=== PATIENT | male | born 1975 ===

== ENCOUNTER 2019-06-15 02:19 | Emergency (ER) | payer SELFPAY ==
[2019-06-15] MEDS ORDERED: ASPIRIN 325 MG TAB PO ONE (02:52)
[2019-06-15] MEDS ORDERED: NITROGLYCERIN 0.4 MG TAB SUBL SL PRN (02:53)
[2019-06-15] MEDS ORDERED: MORPHINE 4 MG/1 ML INJ IV ONE ×2 (02:53→04:09)
[2019-06-15] MEDS ORDERED: ONDANSETRON 4 MG/2 ML INJ IV ONE (02:53)
--- NOTE | 2019-06-15 02:58 | Emergency Department Report ---
ED Abdominal Pain HPI - General Chief Complaint: Chest Pain Stated Complaint: GRISELDA Time Seen by Provider: 06/15/19 02:51 Source: patient Mode of arrival: Ambulatory Limitations: No Limitations - History of Present Illness Initial Comments: Mr. Baxter is a very pleasant 44 yo male without significant past medical hx who presents with gradual onset of epigastric pain radiating to the back and right chest. He has severe shortness of breath. Sharp pain. Pain is 8 out of 10 in severity. No previous history of hypertension. Has not seen a physician in 5-6 years. He drank 2 beers today. He did have a full Thanksgiving and her today. Pain is worse with breathing. Pain has been constant for the past 2 hours. He drinks beer on a weekly basis. MD Complaint: abdominal pain -: Gradual, hour(s) (2) Location: epigastric Radiation: back, chest Severity: severe Severity scale (0 -10): 8 Quality: aching, sharp Consistency: constant Improves With: nothing Worsens With: other (inspiration) Associated Symptoms: other (shortness of breath) - Related Data Previous Rx's Medication Instructions Recorded Last Taken Type HYDROcodone/APAP 5-325 [[place] 1 each PO Q6HR PRN #10 tablet 06/15/19 Unknown Rx 5/325] amLODIPine 5 mg PO DAILY 30 Days #30 tab 06/15/19 Unknown Rx levoFLOXacin [Levaquin] 750 mg PO QDAY 4 Days #4 tablet 06/15/19 Unknown Rx Allergies Allergy/AdvReac Type Severity Reaction Status Date / Time No Known Allergies Allergy Unverified 06/15/19 02:35 ED Review of Systems ROS: Stated complaint: GRISELDA Other details as noted in HPI Comment: All other systems reviewed and negative Constitutional: denies: fever, malaise Respiratory: shortness of breath. denies: cough Cardiovascular: chest pain Gastrointestinal: abdominal pain ED Past Medical Hx - Past Medical History Previous Medical History?: No - Surgical History Past Surgical History?: No - Family History Family history: hypertension - Social History Smoking Status: Current Every Day Smoker Substance Use Type: Alcohol - Medications Home Medications: Home Medications Medication Instructions Recorded Confirmed Last Taken Type HYDROcodone/APAP 5-325 [[place] 1 each PO Q6HR PRN #10 tablet 06/15/19 Unknown Rx 5/325] amLODIPine 5 mg PO DAILY 30 Days #30 tab 06/15/19 Unknown Rx levoFLOXacin [Levaquin] 750 mg PO QDAY 4 Days #4 tablet 06/15/19 Unknown Rx ED Physical Exam - General Limitations: No Limitations General appearance: alert, other (appears uncomfortable, speaking full s entences) - Head Head exam: Present: atraumatic, normocephalic - Eye Eye exam: Present: normal appearance - ENT ENT exam: Present: mucous membranes moist - Neck Neck exam: Present: normal inspection, full ROM - Respiratory Respiratory exam: Present: normal lung sounds bilaterally. Absent: respiratory distress, wheezes, rales, rhonchi - Cardiovascular Cardiovascular Exam: Present: regular rate, normal rhythm, normal heart sounds. Absent: systolic murmur, diastolic murmur, rubs, gallop - GI/Abdominal GI/Abdominal exam: Present: soft, normal bowel sounds. Absent: distended, tenderness, guarding, rebound - Rectal Rectal exam: Present: deferred - Extremities Exam Extremities exam: Present: normal inspection - Back Exam Back exam: Present: normal inspection - Neurological Exam Neurological exam: Present: alert, oriented X3, normal gait - Psychiatric Psychiatric exam: Present: normal affect, normal mood - Skin Skin exam: Present: warm, dry, intact, normal color. Absent: rash ED Course Vital Signs 06/15/19 06/15/19 06/15/19 02:35 02:42 04:05 Temperature 98.8 F Pulse Rate 89 88 77 Respiratory 22 17 15 Rate Blood Pressure 225/123 Blood Pressure 216/121 [Left] O2 Sat by Pulse 98 97 90 Oximetry 06/15/19 06/15/19 04:16 04:30 Temperature Pulse Rate 79 83 Respiratory 31 H 20 Rate Blood Pressure 159/99 164/99 Blood Pressure [Left] O2 Sat by Pulse 96 95 Oximetry ED Medical Decision Making - Lab Data Result diagrams: 06/15/19 02:58 06/15/19 02:58 - EKG Data 06/15/19 02:58 EKG obtained at 0228 Normal sinus rhythm rate 90 beats a minute normal axis normal intervals positive LVH no ST elevation no ischemic changes - Radiology Data Radiology results: report reviewed CTA: negative for VTE, RLL groundglass densities CT A/P: no cT evidence of acute inflammatory or obstructive process in abdomen or pelvis, +cholelithiasis, adrenal nodule - Medical Decision Making Mr. Godoy presents with epigastric Right chest pain worse with inspiration. Upon further questioning, he has had cough for 2 weeks. With elevated WBC, hx of cough, CT findings dx: RLL PNA CAP, given information on biliary colic, info rmed of adrenal gland nodule, given copy of CT results Pain is not typical for ACS. Pleuritic, right sided prominent at rest, troponin x 2 negative to rule out DC rx: levaquin, amlodipine, norco repeat bp 155/92 Critical care attestation.: If time is entered above; I have spent that time in minutes in the direct care of this critically ill patient, excluding procedure time. ED Disposition Clinical Impression: CAP (community acquired pneumonia), Hypertensive urgency, Gallstones, Mass of adrenal gland Disposition: - TO HOME OR SELFCARE Is pt being admited?: No Does the pt Need Aspirin: No Condition: Stable Instructions: Bacterial Pneumonia (ED), Hypertension (ED), Biliary Colic (ED) Additional Instructions: Tienes un lugar en tu glndula suprarrenal. Guarde terrence copia de cortes tomografa computarizada. Lleve los resultados de la tomografa computarizada a cortes nuevo mdico. Prescriptions: amLODIPine 5 mg PO DAILY 30 Days #30 tab levoFLOXacin [Levaquin] 750 mg PO QDAY 4 Days #4 tablet HYDROcodone/APAP 5-325 [[place] 5/325] 1 each PO Q6HR PRN #10 tablet PRN Reason: Pain Referrals: JESS GIBSON MD [Staff Physician] - 3-5 Days Forms: Work/School Release Form(ED) Print Language: HONG KONGER
--- NOTE | 2019-06-15 03:22 | XRay Report ---
CHEST 1 VIEW, 06/15/2019 3:14 AM CLINICAL INFORMATION/INDICATION: Chest pain. COMPARISON: None FINDINGS: SUPPORT DEVICES: None. HEART: Cardiac silhouette is normal in size. LUNGS/PLEURA: There is faint bilateral interstitial prominence. No focal airspace consolidation or si gnificant pleural effusion is seen. ADDITIONAL FINDINGS: No additional acute findings. IMPRESSION: 1. Prominent pulmonary interstitium that may suggest mild vascular congestion. Signer Name: Cortney Blanchard MD Signed: 06/15/2019 3:18 AM Workstation Name: [id number]
[2019-06-15 03:41] LABS: Basophils # (Auto) 0.1 K/mm3 (0.0-0.1); Basophils % (Auto) 0.4 % (0.0-1.8); Eosinophils # (Auto) 0.3 K/mm3 (0.0-0.4); Hematocrit 43.7 % (35.5-45.6); Hemoglobin 14.7 gm/dl (11.8-15.2); Lymphocytes # (Auto) 1.8 K/mm3 (1.2-5.4); Lymphocytes % (Auto) 13.3 % (13.4-35.0); Mean Corpuscular HGB Conc 34 % (32-34); Mean Corpuscular Volume 90 fl (84-94); Monocytes % (Auto) 7.2 % (0.0-7.3); Platelet Count 309 K/mm3 (140-440); Red Blood Count 4.86 M/mm3 (3.65-5.03); Red Cell Distribution Width 12.8 % (13.2-15.2)
[2019-06-15 03:57] LABS: Alanine Aminotransferase 19 units/L (7-56); Albumin 4.6 g/dL (3.9-5); BUN/Creatinine Ratio 15; Blood Urea Nitrogen 17 mg/dL (9-20); Calcium 9.1 mg/dL (8.4-10.2); Hemolysis Index 8
--- NOTE | 2019-06-15 04:09 | Cat Scan Report ---
CTA CHEST WITH IV CONTRAST, 06/15/2019 INDICATION: Chest pain TECHNIQUE: Axial CT images were obtained through the chest after injection of IV contrast. Coronal oblique 2-D reconstruction images were produced. 3 plane MIP reconstruction images were produced at an [employer] workstation. All CTs at this facility utilize dose reduction techniques including automated expos ure control, iterative reconstruction and weight based dosing when appropriate to reduce patient radi ation dose to as low as reasonable achievable. COMPARISON: Chest radiograph, 06/15/2019 FINDINGS: No filling defects are visualized within the central or segmental pulmonary arteries to suggest pulmo nary embolism. The heart is normal in size. The thoracic aorta is normal in caliber. Evaluation of th e lung parenchyma demonstrates faint groundglass densities within the posterior right lower lobe. The re is no pleural effusion or pneumothorax. Limited imaging of the upper abdomen demonstrates no evidence of acute abnormality. A single calcifie d stone is noted within the gallbladder. Evaluation of bony structures demonstrates no evidence of ac [place] bony abnormality. Evaluation of soft tissue structures demonstrates no acute soft tissue abnormal ity. IMPRESSION: 1. No evidence of pulmonary embolism. 2. Faint groundglass density within the posterior aspect of the right lower lobe. While this is a non specific finding, this could potentially represent an infectious or inflammatory process in this kamron ent with chest pain. Please correlate clinically. Signer Name: Cortney Blanchard MD Signed: 06/15/2019 4:05 AM Workstation Name: [email or web address]
[2019-06-15] MEDS ORDERED: levoFLOXacin 750 MG TAB PO ONE (04:28)
--- NOTE | 2019-06-15 04:28 | Cat Scan Report ---
CT ABDOMEN AND PELVIS WITH IV CONTRAST INDICATION: Epigastric pain. TECHNIQUE: Following the administration of intravenous contrast, multiple axial CT images of the abdo men and pelvis were acquired. Sagittal and coronal reformats were obtained. All CT performed at this facility utilize dose reduction techniques including automated exposure control, iterative reconstru ction and weight based dosing when appropriate to reduce patient radiation dose to as low as reasonab ly achievable. COMPARISON: No prior abdominal imaging is available for comparison. FINDINGS: Limited imaging of the bilateral lung bases demonstrates minimal groundglass densities within the pos terior right lower lobe. Abdomen: There is a single small calcified stone within the gallbladder. The liver, spleen, pancreas, bilateral adrenal glands and bilateral kidneys show no evidence of acute abnormality. There is a 1.4 cm hypodense nodule associated with the anterior limb of the left adrenal gland. There is no evidenc e of bowel obstruction or free fluid. The appendix is visualized and appears normal. There is scatter ed diverticulosis of the descending colon without evidence for diverticulitis. The abdominal aorta is normal in caliber. Pelvis: No free fluid is seen within the pelvis. The urinary bladder appears normal. The prostate is mildly enlarged. Bones and Soft Tissues: Evaluation of bony structures demonstrates no evidence of acute bony abnormal ity. Evaluation of soft tissue structures demonstrates no focal soft tissue abnormality. IMPRESSION: 1. No CT evidence of acute inflammatory or obstructive process within the abdomen or pelvis. 2. Minimal groundglass densities within the right lower lobe. This is nonspecific but may suggest an infectious or inflammatory process. 3. Left adrenal nodule measuring 1.4 cm. It is difficult to characterize this nodule on the basis of today's study. CT of the abdomen with adrenal washout protocol or MRI of the abdomen would likely be helpful for better characterization. 4. Cholelithiasis. 5. Colonic diverticulosis without evidence for diverticulitis. Signer Name: Cortney Blanchard MD Signed: 06/15/2019 4:24 AM Workstation Name: [id number]
[2019-06-15] MEDS ORDERED: HYDROcodone/ACETAMINOPHEN 5-325 MG TAB PO ONE (04:36)
[2019-06-15] MEDS ORDERED: HYDROcodone/ACETAMINOPHEN 5-325 MG TAB ONE (04:40)
[2019-06-15 05:25] VITALS: BP 158/97
== END 2019-06-15 05:20 | disposition home or self-care (01) ==
LOC: ED 02:19
DX: J18.9 Pneumonia, unspecified organism (principal); I16.0 Hypertensive urgency; I10 Essential (primary) hypertension; K80.80 Other cholelithiasis without obstruction; E27.9 Disorder of adrenal gland, unspecified; F17.200 Nicotine dependence, unspecified, uncomplicated
CPT/HCPCS: 36415; 71045; 71275; 74177; 80053; 83690; 84484; 85025; 87040; 93005; 93010; 96374; 96375; 96376; 99285; J2270; J2405; Q9967